=== PATIENT | male | born 1985 | race Caucasian/White ===

== ENCOUNTER 2024-03-03 15:39 | Emergency (ER) | payer OTHER, SELFPAY ==
[2024-03-03 15:52] VITALS: BP 128/65; PULSE 109; RESP 17; TEMP 37.1; O2SAT 97; BMI 34.0
[2024-03-03] MEDS: BENZONATATE 100 MG CAPSULE 200 MG PO (17:10)
--- NOTE | 2024-03-03 17:56 | ED.URI ---
HPI - URI/Sore Throat <Jaime Torres PA-C - Last Filed: 03/03/24 18:00> General Chief Complaint: Upper Respiratory Symptoms Stated Complaint: Cough, sinus, ear ache throat sore, fever, Time Seen by Provider: 03/03/24 16:51 Source: patient Mode of arrival: Ambulatory History of Present Illness HPI Narrative: 38-year-old male presents to the ED with 2 weeks of URI symptoms. Patient complains of nasal congestion, sinus congestion, blocked ears, cough, body aches. No fevers, chills, nausea, vomiting, abdominal pain, chest pain, shortness of breath. Patient has 2 children at home of school going age who are sick as well. Has been taking Mucinex for symptoms. Related Data Previous Rx's Medication Instructions Recorded benzonatate 200 mg capsule 200 mg PO TID PRN cough #30 caps 03/03/24 Allergies Allergy/AdvReac Type Severity Reaction Status Date / Time No Known Drug Allergies Allergy Verified 03/03/24 15:52 Review of Systems <Jaime Torres PA-C - Last Filed: 03/03/24 18:00> Constitutional Constitutional: Reports body ache(s), Denies chills, Reports fatigue, Denies fever(s), Denies frequent falls, Denies lethargy and Denies weakness Eyes Eyes: Denies change in vision, Denies eye discharge, Denies irritation and Denies loss of vision ENT Ears, Nose, Mouth, and Throat: Denies change in voice, Denies dizziness, Denies neck pain, Reports sore throat and Denies throat swelling Comments: Ear fullness Cardiovascular Cardiovascular: Denies chest pain, Denies irregular heart rhythm, Denies lightheadedness, Denies palpitations, Denies dyspnea, Denies dyspnea on exertion and Denies orthopnea Respiratory Respiratory: Reports cough, Denies dyspnea, Denies dyspnea on exertion and Denies wheezing Gastrointestinal Gastrointestinal: Denies abdominal pain, Denies change in bowel habits, Denies diarrhea, Denies nausea and Denies vomiting Musculoskeletal Musculoskeletal: Denies neck pain and Denies numbness Integumentary/Breasts Skin/Breast: Denies pruritus, Denies erythema, Denies rash and Denies wounds Neurologic Neurologic: Denies behavioral changes, Denies confusion, Denies dizziness, Denies frequent falls, Denies loss of vision, Denies numbness and Denies weakness Psychiatric Psychiatric: Denies anxiety, Denies behavioral changes, Denies confusion, Denies depression, Denies homicidal ideation and Denies suicidal ideation Endocrine Endocrine: Reports fatigue, Denies flushing and Denies palpitations Hematologic/Lymphatic Hematologic/Lymphatic: Denies easy bruising Allergic/Immunologic Allergic/Immunologic: Denies urticaria, Denies throat swelling and Denies wheezing Patient History <Jaime Torres PA-C - Last Filed: 03/03/24 18:00> Social History Smoking Status: Never smoker Smoking Status: Never smoker tobacco type: smokeless tobacco Substance Use Type: does not use Exam <Jaime Torres PA-C - Last Filed: 03/03/24 18:00> Narrative Exam Narrative: Const General:?cooperative, healthy appearing and comfortable HENUT Head:?normal to inspection Ears:?hearing grossly normal bilaterally; bilateral tympani normal on exam; external ear canals normal Nose:?external nose normal Face and sinus:?normal facial exam and sinuses nontender Mouth:?oral mucosae normal Throat:?posterior oropharynx normal Eyes General:?appearance normal, both eyes and all related structures Neck Neck:?normal visual inspection and no lymphadenopathy noted Resp Effort & Inspection:?normal respiratory effort Auscultation:?clear to auscultation bilaterally Cardio Rate:?regular rate Rhythm:?regular rhythm Neuro General:?patient alert, patient awake and patient oriented x3 Initial Vital Signs Initial Vital Signs: Vital Signs Temperature 98.7 F 03/03/24 15:52 Pulse Rate 109 H 03/03/24 15:52 Respiratory Rate 17 03/03/24 15:52 Blood Pressure 128/65 03/03/24 15:52 Pulse Oximetry 97 03/03/24 15:52 Oxygen Delivery Method Room Air 03/03/24 15:52 <Sisi Lynn MD - Last Filed: 03/04/24 16:04> Initial Vital Signs Initial Vital Signs: Vital Signs Temperature 98.7 F 03/03/24 15:52 Pulse Rate 109 H 03/03/24 15:52 Respiratory Rate 17 03/03/24 15:52 Blood Pressure 128/65 03/03/24 15:52 Pulse Oximetry 97 03/03/24 15:52 Oxygen Delivery Method Room Air 03/03/24 15:52 Course <Jaime Torres PA-C - Last Filed: 03/03/24 18:00> Orders Ordered: Discontinued Medications Benzonatate (Benzonatate 100 Mg Capsule) 200 mg PO NOW ONE Stop: 03/03/24 17:05 Last Admin: 03/03/24 17:10 Dose: 200 mg Documented By: KAREN Vital Signs Vital signs: Vital Signs - 8 hr 03/03/24 15:52 Temperature 98.7 F Pulse Rate 109 H Respiratory Rate 17 Blood Pressure 128/65 Pulse Oximetry 97 Oxygen Delivery Method Room Air <Sisi Lynn MD - Last Filed: 03/04/24 16:04> Orders Ordered: Discontinued Medications Benzonatate (Benzonatate 100 Mg Capsule) 200 mg PO NOW ONE Stop: 03/03/24 17:05 Last Admin: 03/03/24 17:10 Dose: 200 mg Documented By: KAREN Vital Signs Vital signs: Vital Signs - 8 hr 03/03/24 15:52 Temperature 98.7 F Pulse Rate 109 H Respiratory Rate 17 Blood Pressure 128/65 Pulse Oximetry 97 Oxygen Delivery Method Room Air MDM - URI/Sore Throat <Jaime Torres PA-C - Last Filed: 03/03/24 18:00> MDM Narrative Medical decision making narrative: 38-year-old male presents to the ED with 2 weeks of URI symptoms. History and physical exam consistent with a viral URI. No signs of bacterial infection. Recommend Flonase for blocked ears. Recommend continuing Mucinex and other [id number] remedies. Prescribed Tessalon Perles for cough. ED return precautions were discussed with patient. Patient verbalized understanding. Medical records reviewed: Yes Discharge Plan Departure Patient Disposition: Home Clinical Impression: Upper respiratory infection Instructions: DI for Viral Upper Respiratory Infection -- Adult Activity Restrictions/Additional Instructions: You were evaluated in the ED today for upper respiratory symptoms. Your symptoms are consistent with a viral upper respiratory infection. You may use Flonase which is available [id number] for the stuffy ears. You may continue Mucinex and other [id number] cough or cold medicines. You may take Tylenol and ibuprofen around the clock for aches and pains and fever. You are being prescribed Tessalon Perles for cough as well. Please follow-up with your PCP as soon as possible. Return to the ED if you have worsening symptoms, chest pain, shortness of breath. Prescriptions: New benzonatate 200 mg capsule 200 mg PO TID PRN (Reason: cough) Qty: 30 0RF Stand Alone Forms: Patient Portal/API ED Sign-out <Sisi Lynn MD - Last Filed: 03/04/24 16:04> Cosign ED Attending Rosieature Attestation: I was immediately available in the department for consultation throughout this patient's visit. Sisi Lynn MD
== END 2024-03-03 17:14 | disposition home or self-care (01) ==
PROVIDERS: Emergency Provider Student in an Organized Health Care Education/Training Program
DX: J06.9 Acute upper respiratory infection, unspecified (principal)
CPT/HCPCS: 99283